=== PATIENT | male | born 1970 | race Hispanic/Latino ===

== ENCOUNTER → 2016-09-03 | Outpatient (CLI) | payer OTHER ==
[~2016-09-03] MED LIST: BENT10CA PO; NEUR300C PO; PANT40TA2 PO
[2016-09-07 00:07] LABS: HEMOGLOBIN A 58.3 % (94.0-98.0); HEMOGLOBIN S 38.2 % (0.0)
== END ==
LOC: M LAB 15:54
PROVIDERS: ATTEND Physician Assistant Medical
DX: G57.62 Lesion of plantar nerve, left lower limb (principal); D64.9 Anemia, unspecified

== ENCOUNTER → 2016-09-04 | Outpatient (CLI) | payer OTHER ==
--- NOTE | 2016-09-04 17:37 | ECGEPIP ---
Stationary ECG Study [facility] Test Date: 2016-09-04 Pat Name: RL BLOOD Department: Room: - Gender: M [employer]: ELIAN : 1970 Requested By: VAL Pedroza Order Number: [id number] Reading MD: Tahir Soto Measurements Intervals [place] Rate: 87 P: 42 OK: 127 QRS: -24 QRSD: 90 T: 14 QT: 328 QTc: 396 Interpretive Statements SINUS RHYTHM BORDERLINE LEFT AXIS DEVIATION MINIMAL VOLTAGE CRITERIA FOR LVH, CONSIDER NORMAL VARIANT Similar to tracing from 06-05-15 Electronically Signed On 09-04-2016 17:37:22 EST by Tahir Soto
== END ==
LOC: M EKG 16:35
PROVIDERS: ATTEND Podiatrist Foot & Ankle Surgery
DX: Z01.810 Encounter for preprocedural cardiovascular examination (principal)

== ENCOUNTER → 2016-09-10 | Outpatient (REF) | payer OTHER | LOC: M LAB REF 15:33 | PROVIDERS: ATTEND Podiatrist Foot & Ankle Surgery | DX: G57.62 Lesion of plantar nerve, left lower limb (principal) ==

== ENCOUNTER → 2016-10-07 | Outpatient (CLI) | payer OTHER ==
[2016-10-07 13:44] LABS: BASO % 0.3 % (0.0-1.0); EOS % 1.3 % (0.0-3.0); LYMPH # 0.9 K/mm3 (1.5-4.5); LYMPH % 20.8 % (24.0-44.0); MEAN CORPUSCULAR HEMOGLOBIN 27.7 pg (27.0-33.0); MEAN CORPUSCULAR HGB CONC 33.4 g/dl (32.0-36.5); MEAN CORPUSCULAR VOLUME 82.8 fl (80.0-96.0); MONO # 0.4 K/mm3 (0.0-0.8); NEUTROPHILS # 2.7 K/mm3 (1.8-7.7)
== END ==
LOC: M LAB 11:26
PROVIDERS: ATTEND Physician Assistant Medical
DX: D64.9 Anemia, unspecified (principal); E78.1 Pure hyperglyceridemia; E55.9 Vitamin D deficiency, unspecified

== ENCOUNTER 2016-11-25 18:51 | Emergency (ER) | payer OTHER ==
[~2016-11-25] VITALS: Ht 160 cm; Wt 88.5 kg
[2016-11-25] MEDS ORDERED: VITA50003 (19:11)
[2016-11-25] MEDS ORDERED: NS 1,000 ML IV ONE (21:45)
[2016-11-25] MEDS ORDERED: METOCLOPRAMIDE INJ 10MG/2ML VIAL (J2765) IV ONE (21:45)
[2016-11-25 22:30] LABS: BASO % 0.4 % (0.0-1.0); EOS # 0.1 K/mm3 (0.0-0.50); LARGE UNSTAINED CELL # 0.1 K/mm3 (0.0-0.4); LARGE UNSTAINED CELL % 1.8 % (0.0-4.0); LYMPH % 25.9 % (24.0-44.0); MEAN CORPUSCULAR HEMOGLOBIN 27.6 pg (27.0-33.0); MEAN CORPUSCULAR HGB CONC 33.4 g/dl (32.0-36.5); MEAN CORPUSCULAR VOLUME 82.5 fl (80.0-96.0); MONO # 0.5 K/mm3 (0.0-0.8); MONO % 6.5 % (0.0-5.0); NEUTROPHILS # 4.6 K/mm3 (1.8-7.7); NEUTROPHILS % 64.4 % (36.0-66.0); PLATELET COUNT, AUTOMATED 225 k/mm3 (150-450); RED CELL DISTRIBUTION WIDTH 13.2 % (11.5-14.5); WHITE BLOOD COUNT 7.2 K/mm3 (4.0-10.0)
[2016-11-25 22:50] LABS: ALBUMIN 4.3 GM/DL (3.2-5.2); ALBUMIN/GLOBULIN RATIO 1.08 (1.00-1.93); ALKALINE PHOSPHATASE 42 U/L (45-117); ALT/SGPT 41 U/L (12-78); AMYLASE 40 U/L (25-115); ANION GAP 6 MEQ/L (8-16); AST/SGOT 24 U/L (15-37); BILIRUBIN,DIRECT 0.2 MG/DL (0.0-0.2); BILIRUBIN,TOTAL 0.6 MG/DL (0.2-1.0); BLOOD UREA NITROGEN 10 MG/DL (7-18); CALCIUM LEVEL 9.7 MG/DL (8.5-10.1); CARBON DIOXIDE LEVEL 30 MEQ/L (21-32); CHLORIDE LEVEL 104 MEQ/L (98-107); CREATININE FOR GFR 0.97 MG/DL (0.70-1.30); GLOMERULAR FILTRATION RATE > 60.0 (>60); GLUCOSE, FASTING 110 MG/DL (70-105); POTASSIUM SERUM 3.6 MEQ/L (3.5-5.1); SODIUM LEVEL 140 MEQ/L (136-145); TOTAL PROTEIN 8.3 GM/DL (6.4-8.2)
[2016-11-25] MEDS ORDERED: REGL10TA6 PO (23:31)
[2016-11-25 23:38] VITALS: BP 112/67
--- NOTE | 2016-11-26 08:26 | REP ---
Acute abdominal series three views including PA chest and supine upright abdomen: PA chest: Comparison is 07/31/2015. The lung lackey are clear. The cardiac size is normal The clair, mediastinum, and bony thorax are unremarkable. Impression: Negative PA chest. There is no free subdiaphragmatic air. Abdomen, supine upright views: Comparison is 05/03/2013. The bowel gas pattern is normal. There are no unusual calcifications. The skeletal structures and soft tissues are otherwise unremarkable. There is no interval change. Impression: Normal bowel gas pattern. Signed by Manuel Sebastian MD 11/26/2016 08:17 A
== END 2016-11-25 23:44 | disposition home or self-care (01) ==
LOC: M ED 19:44
DX: K52.9 Noninfective gastroenteritis and colitis, unspecified (principal); K59.00 Constipation, unspecified
CPT/HCPCS: 36415; 74022; 80048; 80076; 81001; 82150; 83690; 85025; 96361; 96374; 99283; J2765

== ENCOUNTER 2017-01-01 23:17 | Emergency (ER) | payer OTHER ==
[~2017-01-01] VITALS: Ht 160 cm; Wt 88.5 kg
[~2017-01-01 23:17] MED LIST changes: +REGL10TA6 PO; +VITA50003
[2017-01-01] MEDS ORDERED: NS 1,000 ML IV ONE (23:45)
[2017-01-01] MEDS ORDERED: HYDROmorphone HCL 1 MG/ML SYRINGE (J1170) IV ONE (23:45)
[2017-01-01] MEDS ORDERED: KETOROLAC 30 MG/ML VIAL (J1885) IV ONE (23:45)
[2017-01-01 23:54] LABS: BASO % 0.4 % (0.0-1.0); EOS # 0.1 K/mm3 (0.0-0.50); EOS % 1.3 % (0.0-3.0); LARGE UNSTAINED CELL # 0.1 K/mm3 (0.0-0.4); LARGE UNSTAINED CELL % 1.3 % (0.0-4.0); LYMPH # 1.8 K/mm3 (1.5-4.5); LYMPH % 16.1 % (24.0-44.0); MEAN CORPUSCULAR HEMOGLOBIN 27.6 pg (27.0-33.0); MEAN CORPUSCULAR HGB CONC 33.7 g/dl (32.0-36.5); MONO # 0.5 K/mm3 (0.0-0.8); MONO % 4.3 % (0.0-5.0); NEUTROPHILS # 8.1 K/mm3 (1.8-7.7); NEUTROPHILS % 76.5 % (36.0-66.0); PLATELET COUNT, AUTOMATED 307 k/mm3 (150-450); RED CELL DISTRIBUTION WIDTH 12.7 % (11.5-14.5); WHITE BLOOD COUNT 10.5 K/mm3 (4.0-10.0)
[2017-01-02] MEDS ORDERED: HYDROmorphone HCL 1 MG/ML SYRINGE (J1170) IV ONE
[2017-01-02 00:25] LABS: ANION GAP 6 MEQ/L (8-16); BLOOD UREA NITROGEN 9 MG/DL (7-18); CALCIUM LEVEL 9.1 MG/DL (8.5-10.1); CARBON DIOXIDE LEVEL 28 MEQ/L (21-32); CHLORIDE LEVEL 103 MEQ/L (98-107); CREATININE FOR GFR 1.25 MG/DL (0.70-1.30); GLOMERULAR FILTRATION RATE > 60.0 (>60); GLUCOSE, FASTING 116 MG/DL (70-105); POTASSIUM SERUM 4.4 MEQ/L (3.5-5.1); SODIUM LEVEL 137 MEQ/L (136-145)
--- NOTE | 2017-01-02 01:10 | REPUSA ---
CLINICAL HISTORY: Abdominal pain. TECHNIQUE: Multiple axial, sagittal and coronal CT images were obtained through the abdomen and pelvi s without administration of oral or IV contrast material. COMMENTS: Comparison to the prior exam performed on 07/24/2014. Distended stomach. The liver is mildly enlarged without mass or defect. There is no intra or extrahepatic biliary ductal dilatation. The spleen is normal. The gallbladder is within normal limits. The pancreas is of normal contour and attenuation characteristics. There is no evidence of adrenal mass. 1.3 cm right renal cyst. The kidneys are normal in size, shape and configuration. No renal or ureteral calculi are identified. There is no hydroureter or hydronephrosis. There is no evidence for appendicitis. No evidence for small or large bowel obstruction. There is no evidence of abdominal ascites or lymphadenopathy. There is no evidence of intrinsic or extrinsic bladder mass. There is no pelvic ascites or lymphadeno scooter. Diffuse thickening of the ascending and transverse colon. Images of the lung bases show no evidence of pleural or parenchymal mass. There are no pleural effusi ons. The bony structures are free of lytic or blastic lesions. IMPRESSION: Thickening of the ascending and transverse colon. Underdistention, spasm versus mild colitis. Unchanged hepatomegaly with fatty liver infiltration. Mild gastroparesis. Thank you for your kind referral of this patient.
[2017-01-02 03:20] VITALS: BP 121/70
== END 2017-01-02 04:13 | disposition home or self-care (01) ==
LOC: M ED 23:38
DX: K58.9 Irritable bowel syndrome, unspecified (principal); K21.9 Gastro-esophageal reflux disease without esophagitis; G47.30 Sleep apnea, unspecified; Z79.899 Other long term (current) drug therapy
CPT/HCPCS: 74176; 80048; 81001; 85025; 87086; 96361; 96374; 96375; 96376; 99283; J1170; J1885

== ENCOUNTER → 2017-03-24 | Outpatient (RCR) | payer OTHER ==
[~2017-03-24] MED LIST changes: +ADVI200T PO; +ROBA500T PO; +SUMA50TA2 PO; +TIZANIDINE PO; +VITA1CAP40; -VITA50003
== END ==
LOC: M PT 14:04
PROVIDERS: ATTEND Podiatrist Foot & Ankle Surgery
DX: Z51.89 Encounter for other specified aftercare (principal); M72.2 Plantar fascial fibromatosis

== ENCOUNTER → 2017-04-15 | Outpatient (CLI) | payer OTHER ==
[2017-04-15 12:26] LABS: ALBUMIN 4.1 GM/DL (3.2-5.2); ALBUMIN/GLOBULIN RATIO 1.03 (1.00-1.93); ALKALINE PHOSPHATASE 49 U/L (45-117); ALT/SGPT 45 U/L (12-78); ANION GAP 6 MEQ/L (8-16); AST/SGOT 22 U/L (15-37); BILIRUBIN,TOTAL 0.9 MG/DL (0.2-1.0); BLOOD UREA NITROGEN 15 MG/DL (7-18); CALCIUM LEVEL 9.6 MG/DL (8.5-10.1); CARBON DIOXIDE LEVEL 30 MEQ/L (21-32); CHLORIDE LEVEL 104 MEQ/L (98-107); CHOLESTEROL LEVEL 202 MG/DL (<200); CREATININE FOR GFR 0.95 MG/DL (0.70-1.30); GLOMERULAR FILTRATION RATE > 60.0 (>60); GLUCOSE, FASTING 97 MG/DL (70-105); POTASSIUM SERUM 4.2 MEQ/L (3.5-5.1); SODIUM LEVEL 140 MEQ/L (136-145); TOTAL PROTEIN 8.1 GM/DL (6.4-8.2); TRIGLYCERIDES LEVEL 379 MG/DL (<150)
== END ==
LOC: M LAB 11:28
PROVIDERS: ATTEND Physician Assistant Medical
DX: E78.1 Pure hyperglyceridemia (principal)

== ENCOUNTER → 2017-04-24 | Outpatient (RCR) | payer OTHER | LOC: M PT 03-26 08:31 | PROVIDERS: ATTEND Podiatrist Foot & Ankle Surgery | DX: Z51.89 Encounter for other specified aftercare (principal); M72.2 Plantar fascial fibromatosis; M25.511 Pain in right shoulder; M25.512 Pain in left shoulder; M54.2 Cervicalgia ==

== ENCOUNTER 2017-05-21 14:53 | Outpatient (RCR) | payer OTHER ==
[~2017-05-21 14:53] MED LIST changes: -ADVI200T PO; -ROBA500T PO; -SUMA50TA2 PO; -TIZANIDINE PO
== END 2017-05-24 ==
LOC: M PT 14:53
PROVIDERS: ATTEND Podiatrist Foot & Ankle Surgery
DX: Z51.89 Encounter for other specified aftercare (principal); M54.2 Cervicalgia; M50.30 Other cervical disc degeneration, unspecified cervical region; M72.2 Plantar fascial fibromatosis

== ENCOUNTER 2017-05-29 12:38 | Emergency (ER) | payer OTHER ==
[~2017-05-29] VITALS: Ht 160 cm; Wt 89.1 kg
[2017-05-29] MEDS ORDERED: METOCLOPRAMIDE INJ 10MG/2ML VIAL (J2765) IV ONE (17:15)
[2017-05-29] MEDS ORDERED: KETOROLAC 30 MG/ML VIAL (J1885) IV ONE (17:15)
[2017-05-29] MEDS ORDERED: diphenhydrAMINE INJ 50MG/ML VIAL (J1200) IV ONE (17:15)
[2017-05-29] MEDS ORDERED: NS 500 ML IV ONE (17:15)
[2017-05-29 19:00] VITALS: BP 118/71
[2017-05-30] MEDS ORDERED: SUMA50TA2 PO (14:56)
== END 2017-05-29 20:28 | disposition home or self-care (01) ==
LOC: M ED 12:38
DX: G43.909 Migraine, unspecified, not intractable, without status migrainosus (principal); G47.33 Obstructive sleep apnea (adult) (pediatric); D57.3 Sickle-cell trait; Z82.49 Family history of ischemic heart disease and other diseases of the circulatory system; F12.90 Cannabis use, unspecified, uncomplicated; Z79.899 Other long term (current) drug therapy
CPT/HCPCS: 87880; 96374; 96375; 99283; J1200; J1885; J2765

== ENCOUNTER 2017-05-30 11:24 | Emergency (ER) | payer OTHER ==
[~2017-05-30] VITALS: Ht 160 cm; Wt 89.1 kg
[2017-05-30] MEDS ORDERED: diphenhydrAMINE INJ 50MG/ML VIAL (J1200) IV ONE (12:15)
[2017-05-30] MEDS ORDERED: KETOROLAC 30 MG/ML VIAL (J1885) IV ONE (12:15)
[2017-05-30] MEDS ORDERED: METOCLOPRAMIDE INJ 10MG/2ML VIAL (J2765) IV ONE (12:15)
[2017-05-30 12:21] LABS: BASO % 0.5 % (0.0-1.0); EOS # 0.1 10^3/uL (0.0-0.50); EOS % 0.8 % (0.0-3.0); IMMATURE GRANULOCYTE % 0.3 % (0-0); LYMPH # 1.6 10^3/uL (1.5-4.5); LYMPH % 20.7 % (24.0-44.0); MEAN CORPUSCULAR HEMOGLOBIN 28.3 pg (27.0-33.0); MEAN CORPUSCULAR HGB CONC 33.6 g/dl (32.0-36.5); MEAN CORPUSCULAR VOLUME 84.4 fl (80.0-96.0); MONO # 0.5 10^3/uL (0.0-0.8); NEUTROPHILS # 5.7 10^3/uL (1.8-7.7); NEUTROPHILS % 71.7 % (36.0-66.0); PLATELET COUNT, AUTOMATED 207 10^3/uL (150-450); RED CELL DISTRIBUTION WIDTH 12.4 % (11.5-14.5); WHITE BLOOD COUNT 7.9 10^3/uL (4.0-10.0)
[2017-05-30 12:25] LABS: ADD MANUAL DIFFER NO; DIFF SLIDE NUMBER 229
[2017-05-30 12:51] LABS: ALBUMIN 3.4 GM/DL (3.2-5.2); ALBUMIN/GLOBULIN RATIO 0.83 (1.00-1.93); ALKALINE PHOSPHATASE 42 U/L (45-117); ALT/SGPT 32 U/L (12-78); ANION GAP 2 MEQ/L (8-16); AST/SGOT 15 U/L (15-37); BILIRUBIN,DIRECT 0.1 MG/DL (0.0-0.2); BILIRUBIN,TOTAL 0.4 MG/DL (0.2-1.0); BLOOD UREA NITROGEN 13 MG/DL (7-18); CALCIUM LEVEL 8.8 MG/DL (8.5-10.1); CARBON DIOXIDE LEVEL 32 MEQ/L (21-32); CHLORIDE LEVEL 109 MEQ/L (98-107); CREATININE FOR GFR 1.02 MG/DL (0.70-1.30); GLOMERULAR FILTRATION RATE > 60.0 (>60); GLUCOSE, FASTING 110 MG/DL (70-105); SODIUM LEVEL 143 MEQ/L (136-145); TOTAL PROTEIN 7.5 GM/DL (6.4-8.2)
--- NOTE | 2017-05-30 13:17 | REP ---
CT Head without contrast HISTORY: Headache COMPARISON: 06/04/2015 There is no intraparenchymal hemorrhage, acute infarct, mass or midline shift. The ventricular system is normal in appearance. There is no extra cerebral collection. There is no fracture. The visualized sinuses are clear. IMPRESSION: There is no intracranial lesion. Signed by Bayron Perez MD 05/30/2017 01:08 P
[2017-05-30] MEDS ORDERED: NS 500 ML IV ONE (13:30)
[2017-05-30] MEDS ORDERED: MORPHINE 4 MG/ML 1ML SYRINGE IV ONE (13:30)
[2017-05-30] MEDS ORDERED: SUMA50TA2 PO (14:56)
[2017-05-30 15:00] VITALS: BP 130/82
== END 2017-05-30 15:01 | disposition home or self-care (01) ==
LOC: M ED 11:24
DX: G43.909 Migraine, unspecified, not intractable, without status migrainosus (principal); G89.29 Other chronic pain; G47.33 Obstructive sleep apnea (adult) (pediatric); D57.3 Sickle-cell trait; Z79.899 Other long term (current) drug therapy; Z82.49 Family history of ischemic heart disease and other diseases of the circulatory system
CPT/HCPCS: 70450; 80048; 80076; 83735; 85025; 96374; 96375; 99283; J1200; J1885; J2765

== ENCOUNTER → 2017-06-10 | Outpatient (CLI) | payer OTHER ==
[~2017-06-10] MED LIST changes: +ADVI200T PO; +ROBA500T PO; +SUMA50TA2 PO; +TIZANIDINE PO
[2017-06-10 15:10] LABS: ALBUMIN/GLOBULIN RATIO 1.14 (1.00-1.93); ALKALINE PHOSPHATASE 54 U/L (45-117); ALT/SGPT 46 U/L (12-78); ANION GAP 6 MEQ/L (8-16); AST/SGOT 23 U/L (15-37); BILIRUBIN,TOTAL 0.4 MG/DL (0.2-1.0); BLOOD UREA NITROGEN 9 MG/DL (7-18); CALCIUM LEVEL 9.3 MG/DL (8.5-10.1); CARBON DIOXIDE LEVEL 32 MEQ/L (21-32); CHLORIDE LEVEL 101 MEQ/L (98-107); CHOLESTEROL LEVEL 215 MG/DL (<200); CREATININE FOR GFR 0.87 MG/DL (0.70-1.30); GLOMERULAR FILTRATION RATE > 60.0 (>60); GLUCOSE, FASTING 81 MG/DL (70-105); POTASSIUM SERUM 4.2 MEQ/L (3.5-5.1); SODIUM LEVEL 139 MEQ/L (136-145); TOTAL PROTEIN 7.5 GM/DL (6.4-8.2); TRIGLYCERIDES LEVEL 440 MG/DL (<150)
== END ==
LOC: M LAB 12:26
PROVIDERS: ATTEND Physician Assistant Medical
DX: E78.2 Mixed hyperlipidemia (principal)

== ENCOUNTER 2017-06-14 12:46 | Emergency (ER) | payer OTHER ==
[~2017-06-14] VITALS: Ht 160 cm; Wt 91.4 kg
[~2017-06-14 12:46] MED LIST changes: -ADVI200T PO; -ROBA500T PO; -TIZANIDINE PO
[2017-06-14] MEDS ORDERED: TIZANIDINE PO (13:16)
[2017-06-14] MEDS ORDERED: ROBA500T PO (13:16)
[2017-06-14] MEDS ORDERED: ADVI200T PO (13:16)
[2017-06-14] MEDS ORDERED: diphenhydrAMINE INJ 50MG/ML VIAL (J1200) IV STA (16:18)
[2017-06-14] MEDS ORDERED: NS 1,000 ML IV ONE (16:30)
[2017-06-14] MEDS ORDERED: METOCLOPRAMIDE INJ 10MG/2ML VIAL (J2765) IV ONE (16:30)
[2017-06-14] MEDS ORDERED: KETOROLAC 30 MG/ML VIAL (J1885) IV ONE (16:30)
[2017-06-14 17:46] VITALS: BP 105/73
== END 2017-06-14 17:57 | disposition home or self-care (01) ==
LOC: M ED 12:46
DX: G43.909 Migraine, unspecified, not intractable, without status migrainosus (principal); Z79.899 Other long term (current) drug therapy
CPT/HCPCS: 96361; 96374; 96375; 99284; J1200; J1885; J2765

== ENCOUNTER → 2017-07-29 | Outpatient (CLI) | payer OTHER ==
[~2017-07-29] MED LIST changes: +ADVI200T PO; +ROBA500T PO; +TIZANIDINE PO
[2017-07-29 12:30] LABS: ALBUMIN 4.2 GM/DL (3.2-5.2); ALBUMIN/GLOBULIN RATIO 1.08 (1.00-1.93); ALKALINE PHOSPHATASE 46 U/L (45-117); ALT/SGPT 41 U/L (12-78); ANION GAP 8 MEQ/L (8-16); AST/SGOT 14 U/L (7-37); BILIRUBIN,TOTAL 0.4 MG/DL (0.2-1.0); BLOOD UREA NITROGEN 14 MG/DL (7-18); CALCIUM LEVEL 9.6 MG/DL (8.5-10.1); CARBON DIOXIDE LEVEL 28 MEQ/L (21-32); CHLORIDE LEVEL 106 MEQ/L (98-107); CHOLESTEROL LEVEL 246 MG/DL (<200); CREATININE FOR GFR 1.02 MG/DL (0.70-1.30); GLOMERULAR FILTRATION RATE > 60.0 (>60); GLUCOSE, FASTING 115 MG/DL (70-105); POTASSIUM SERUM 4.3 MEQ/L (3.5-5.1); SODIUM LEVEL 142 MEQ/L (136-145); TOTAL PROTEIN 8.1 GM/DL (6.4-8.2); TRIGLYCERIDES LEVEL 176 MG/DL (<150)
== END ==
LOC: M LAB 10:28
PROVIDERS: ATTEND Physician Assistant Medical
DX: E78.2 Mixed hyperlipidemia (principal)

== ENCOUNTER 2017-08-27 17:17 | Emergency (ER) | payer OTHER ==
[2017-08-27] MEDS: NORCO 5/325MG TABLET (BULK FOR ED) PO (21:36)
== END 2017-08-27 21:46 | disposition home or self-care (01) ==
LOC: M ED 17:17
DX: M54.42 Lumbago with sciatica, left side (principal); K21.9 Gastro-esophageal reflux disease without esophagitis
CPT/HCPCS: 72110

== ENCOUNTER 2017-10-29 16:42 | Emergency (ER) | payer BC, OTHER | END 2017-10-29 19:02 | disposition home or self-care (01) | LOC: M ED 16:42 | DX: S90.122A Contusion of left lesser toe(s) without damage to nail, initial encounter (principal); W22.8XXA Striking against or struck by other objects, initial encounter; Y92.018 Other place in single-family (private) house as the place of occurrence of the external cause; G47.33 Obstructive sleep apnea (adult) (pediatric); Z79.899 Other long term (current) drug therapy | CPT/HCPCS: 73630 ==

== ENCOUNTER 2018-05-22 16:35 | Emergency (ER) | payer OTHER ==
[2018-05-22] MEDS: METHOCARBAMOL 500 MG TAB PO (18:38)
[2018-05-22] MEDS: NORCO, ANEXSIA 5/325MG TABLET (HYDROcodone/ACETAMINOPHEN) PO (18:38)
== END 2018-05-22 18:50 | disposition home or self-care (01) ==
LOC: M ED 16:35
DX: S29.012A Strain of muscle and tendon of back wall of thorax, initial encounter (principal); X50.9XXA Other and unspecified overexertion or strenuous movements or postures, initial encounter; Y92.89 Other specified places as the place of occurrence of the external cause; M54.9 Dorsalgia, unspecified; G89.29 Other chronic pain; D57.1 Sickle-cell disease without crisis; K21.9 Gastro-esophageal reflux disease without esophagitis
CPT/HCPCS: 99283

== ENCOUNTER → 2018-08-05 | Outpatient (CLI) | payer BC | LOC: M WUC 13:15 | DX: M25.532 Pain in left wrist (principal) | CPT/HCPCS: 73110 ==

== ENCOUNTER → 2019-02-06 | Outpatient (CLI) | payer BC ==
[~2019-02-06] MED LIST changes: +GEMF600T5 PO; +HYDR-3715 PO; +IBUP80TA PO; -PANT40TA2 PO; +PANT40TA3 PO; -VITA1CAP40; +VITA50005
--- NOTE | 2019-02-06 14:24 | REP ---
LEFT SHOULDER, THREE VIEWS: There is no evidence of an acute fracture, dislocation or intrinsic bone disease. IMPRESSION: No fracture or dislocation. Electronically Signed by Manuel White MD 02/06/2019 07:39 P
--- NOTE | 2019-02-06 14:26 | REP ---
LEFT CLAVICLE, TWO VIEWS: Two views of the left clavicle are performed. There is no acute fracture, dislocation or intrinsic bone disease. IMPRESSION: No fracture or dislocation. Electronically Signed by Manuel White MD 02/06/2019 07:39 P
== END ==
LOC: M WUC 13:11
PROVIDERS: ATTEND Physician Assistant
DX: S40.012A Contusion of left shoulder, initial encounter (principal); W18.30XA Fall on same level, unspecified, initial encounter; Y92.009 Unspecified place in unspecified non-institutional (private) residence as the place of occurrence of the external cause

== ENCOUNTER → 2019-06-15 | Outpatient (CLI) | payer BC ==
[2019-06-15 20:17] LABS: PLATELET COUNT, AUTOMATED 204 10^3/uL (150-450)
[2019-06-15 20:42] LABS: INR 1.09; PROTHROMBIN TIME 13.8 SECONDS (11.8-14.0)
[2019-06-15 20:43] LABS: PARTIAL THROMBOPLASTIN TIME 29.7 SECONDS (25.0-38.4)
== END ==
LOC: M WUC 15:45
PROVIDERS: ATTEND Physician Assistant
DX: Z01.812 Encounter for preprocedural laboratory examination (principal); M47.22 Other spondylosis with radiculopathy, cervical region

== ENCOUNTER → 2019-11-10 | Outpatient (REF) | payer BC ==
[2019-11-10 13:26] LABS: BASO % 0.4 % (0.0-1.0); EOS # 0.1 10^3/uL (0.0-0.5); EOS % 1.2 % (0.0-3.0); HEMATOCRIT 45.8 % (42.0-52.0); HEMOGLOBIN 15.5 g/dl (13.5-17.5); LYMPH # 1.8 10^3/uL (1.5-5.0); LYMPH % 27.2 % (24.0-44.0); MEAN CORPUSCULAR HEMOGLOBIN 28.7 pg (27.0-33.0); MEAN CORPUSCULAR HGB CONC 33.8 g/dl (32.0-36.5); MEAN CORPUSCULAR VOLUME 84.7 fl (80.0-96.0); MONO # 0.6 10^3/uL (0.0-0.8); MONO % 8.5 % (0.0-5.0); NEUTROPHILS # 4.2 10^3/uL (1.5-8.5); NEUTROPHILS % 62.6 % (36.0-66.0); PLATELET COUNT, AUTOMATED 185 10^3/uL (150-450); RED BLOOD COUNT 5.41 10^6/uL (4.30-6.10); WHITE BLOOD COUNT 6.7 10^3/uL (4.0-10.0)
[2019-11-10 13:40] LABS: ALBUMIN 4.2 GM/DL (3.2-5.2); ALT/SGPT 41 U/L (12-78); BILIRUBIN,TOTAL 0.6 MG/DL (0.2-1.0); BLOOD UREA NITROGEN 15 MG/DL (7-18); CALCIUM LEVEL 9.4 MG/DL (8.5-10.1); CARBON DIOXIDE LEVEL 28 MEQ/L (21-32); CHLORIDE LEVEL 106 MEQ/L (98-107); CHOLESTEROL LEVEL 218 MG/DL (<200); CHOLESTEROL RISK RATIO 5.317 (<5); CREATININE FOR GFR 0.84 MG/DL (0.70-1.30); FREE T4 0.95 NG/DL (0.76-1.46); GLOMERULAR FILTRATION RATE > 60.0 (>60); GLUCOSE, FASTING 105 MG/DL (70-100); HDL CHOLESTEROL 41 MG/DL (>40); IRON (FE) 143 UG/DL (65-175); NON-HDL-C 177 MG/DL; SODIUM LEVEL 140 MEQ/L (136-145); TOTAL PROTEIN 7.6 GM/DL (6.4-8.2); TRIGLYCERIDES LEVEL 420 MG/DL (<150)
[2019-11-10 13:42] LABS: VITAMIN B12 LEVEL 838 PG/ML
[2019-11-10 13:43] LABS: FOLATE 16.2 NG/ML
[2019-11-10 13:44] LABS: HEMOGLOBIN A1c 5.7 %
== END ==
LOC: M LAB REF 12:25
PROVIDERS: ATTEND Nurse Practitioner Family
DX: R10.9 Unspecified abdominal pain (principal); M54.89 Other dorsalgia; M25.512 Pain in left shoulder; Z13.9 Encounter for screening, unspecified; E55.9 Vitamin D deficiency, unspecified

== ENCOUNTER → 2020-02-10 | Outpatient (REF) | payer BC ==
[2020-02-10 12:00] LABS: BASO % 0.3 % (0.0-1.0); EOS # 0.1 10^3/uL (0.0-0.5); EOS % 1.4 % (0.0-3.0); HEMATOCRIT 45.4 % (42.0-52.0); HEMOGLOBIN 15.4 g/dl (13.5-17.5); LYMPH # 1.6 10^3/uL (1.5-5.0); LYMPH % 24.7 % (24.0-44.0); MEAN CORPUSCULAR HEMOGLOBIN 28.5 pg (27.0-33.0); MEAN CORPUSCULAR HGB CONC 33.9 g/dl (32.0-36.5); MEAN CORPUSCULAR VOLUME 84.1 fl (80.0-96.0); MONO # 0.6 10^3/uL (0.0-0.8); MONO % 8.9 % (0.0-5.0); NEUTROPHILS # 4.1 10^3/uL (1.5-8.5); NEUTROPHILS % 64.4 % (36.0-66.0); PLATELET COUNT, AUTOMATED 172 10^3/uL (150-450); WHITE BLOOD COUNT 6.3 10^3/uL (4.0-10.0)
[2020-02-10 12:49] LABS: ALT/SGPT 37 U/L (12-78); BILIRUBIN,TOTAL 0.6 MG/DL (0.2-1.0); BLOOD UREA NITROGEN 13 MG/DL (7-18); CALCIUM LEVEL 9.2 MG/DL (8.5-10.1); CARBON DIOXIDE LEVEL 25 MEQ/L (21-32); CHLORIDE LEVEL 106 MEQ/L (98-107); CHOLESTEROL LEVEL 215 MG/DL (<200); CHOLESTEROL RISK RATIO 5.512 (<5); CREATININE FOR GFR 0.81 MG/DL (0.70-1.30); GLOMERULAR FILTRATION RATE > 60.0 (>60); GLUCOSE, FASTING 102 MG/DL (70-100); HDL CHOLESTEROL 39 MG/DL (>40); LDL CHOLESTEROL 107 MG/DL (<100); NON-HDL-C 176 MG/DL; SODIUM LEVEL 139 MEQ/L (136-145); TOTAL PROTEIN 7.4 GM/DL (6.4-8.2); TRIGLYCERIDES LEVEL 344 MG/DL (<150)
[2020-02-10 12:58] LABS: HEMOGLOBIN A1c 5.7 %
[2020-02-11 18:20] LABS: TOTAL 25(OH) VITAMIN D 36.4 NG/ML (30.0-100.0)
== END ==
LOC: M LAB REF 11:34
PROVIDERS: ATTEND Nurse Practitioner Family
DX: M54.2 Cervicalgia (principal); R73.03 Prediabetes; E78.5 Hyperlipidemia, unspecified; F41.8 Other specified anxiety disorders; R79.89 Other specified abnormal findings of blood chemistry; E55.9 Vitamin D deficiency, unspecified

== ENCOUNTER → 2020-02-21 | Outpatient (CLI) | payer BC | LOC: M LABSMTC 10:13 | PROVIDERS: ATTEND Orthopaedic Surgery | DX: Z11.59 Encounter for screening for other viral diseases (principal) ==

== ENCOUNTER → 2021-04-10 | Outpatient (CLI) | payer BC ==
[~2021-04-10] MED LIST changes: +PANT40TA29 PO; -PANT40TA3 PO
--- NOTE | 2021-04-10 21:44 | REP ---
INDICATION: CONCERN FOR DACTYLITIS, PSORIATIC ARTHRITIS COMPARISON: None. TECHNIQUE: AP, lateral, bilateral oblique views right hand. FINDINGS: The osseous structures and joint spaces are intact and age-appropriate. No significant overt arthritic changes are appreciated. There is no evidence for acute fracture or dislocation. Surrounding soft tissues are unremarkable. No subcutaneous emphysema or radiodense foreign body. IMPRESSION: No arthritic changes are appreciated. Age-appropriate examination. <Electronically signed by Charles Hirsch > 04/10/21 [id number]
[2021-04-12 08:09] LABS: LDL DIRECT 74 mg/dL (0-99)
== END ==
LOC: M WUC 11:30
PROVIDERS: ATTEND Internal Medicine
DX: M25.541 Pain in joints of right hand (principal); E78.1 Pure hyperglyceridemia

== ENCOUNTER → 2021-05-10 | Outpatient (CLI) | payer BC ==
--- NOTE | 2021-05-10 16:36 | REP ---
INDICATION: SWELLING, PAIN LT LEG COMPARISON: None. TECHNIQUE: White scale and color Doppler evaluation using linear high frequency transducer. FINDINGS: Ultrasound examination of the left lower extremity deep venous structures from the common femoral vein through the calf/ankle to include the peroneal, and tibial veins demonstrates normal compressibility flow and wave patterns in response to respiration and augmentation. There is no evidence for deep venous thrombosis. Contralateral CFV is patent and normal. IMPRESSION: No evidence for deep venous thrombosis. <Electronically signed by Charles Hirsch > 05/10/21 [id number]
== END ==
LOC: M RAD 15:44
PROVIDERS: ATTEND Internal Medicine
DX: M79.605 Pain in left leg (principal); M79.89 Other specified soft tissue disorders

== ENCOUNTER 2022-03-11 18:21 | Emergency (ER) | payer BC ==
[~2022-03-11] VITALS: Ht 160 cm; Wt 87.9 kg
[2022-03-11 18:22] VITALS: BP 121/68
[2022-03-11] MEDS ORDERED: BOOSTRIX/ADACEL VACCINE (DIPHTH/PERTUSS/ACELL/TETANUS) 0.5ML SYR IM ONE (22:50)
[2022-03-11] MEDS ORDERED: BACITRACIN OINTMENT 30GM TUBE TOP ONE (22:50)
[2022-03-11] MEDS ORDERED: CEPH500C PO (23:05)
== END 2022-03-11 23:35 | disposition home or self-care (01) ==
LOC: M ED 18:21
DX: S61.300A Unspecified open wound of right index finger with damage to nail, initial encounter (principal); Y92.099 Unspecified place in other non-institutional residence as the place of occurrence of the external cause; Y93.G1 Activity, food preparation and clean up

== ENCOUNTER → 2022-08-06 | Outpatient (CLI) | payer BC ==
[~2022-08-06] MED LIST changes: +CEPH500C PO
== END ==
LOC: M PLAIMG 11:29
PROVIDERS: ATTEND Nurse Practitioner Family
DX: M51.16 Intervertebral disc disorders with radiculopathy, lumbar region (principal); M51.17 Intervertebral disc disorders with radiculopathy, lumbosacral region

== ENCOUNTER → 2022-09-09 | Outpatient (CLI) | payer BC ==
[~2022-09-09] MED LIST changes: +CYCL-707 PO; +OMEP-173 PO; +PREG25CA2 PO
== END ==
LOC: M LABSMTC 10:50
PROVIDERS: ATTEND Anesthesiology
DX: Z01.812 Encounter for preprocedural laboratory examination (principal); Z11.52 Encounter for screening for COVID-19

== ENCOUNTER → 2022-09-13 | Day surgery (SDC) | payer BC ==
[~2022-09-13] VITALS: Ht 160 cm; Wt 86.7 kg
[~2022-09-13] MED LIST changes: +LIDOCAINE 2% 100MG/5ML SDV (FOR ANES.) As Ordered ONE; +NS 1,000 ML IV ONE; +propofoL 200 MG/20 ML VIAL As Ordered ONE
[2022-09-13 13:18] VITALS: BP 136/78
== END | disposition home or self-care (01) ==
LOC: M OPP 11:10
PROVIDERS: ATTEND Internal Medicine Gastroenterology
DX: Z12.11 Encounter for screening for malignant neoplasm of colon (principal); K63.89 Other specified diseases of intestine; K63.5 Polyp of colon; K64.8 Other hemorrhoids; K31.84 Gastroparesis; Z79.899 Other long term (current) drug therapy; G47.33 Obstructive sleep apnea (adult) (pediatric); Z99.89 Dependence on other enabling machines and devices; F32.9 Major depressive disorder, single episode, unspecified; F41.9 Anxiety disorder, unspecified

== ENCOUNTER → 2022-11-12 | Outpatient (CLI) | payer BC ==
[~2022-11-12] MED LIST changes: -LIDOCAINE 2% 100MG/5ML SDV (FOR ANES.) As Ordered ONE; -NS 1,000 ML IV ONE; -propofoL 200 MG/20 ML VIAL As Ordered ONE
[2022-11-12 17:51] LABS: URIC ACID 7.1 MG/DL (3.7-9.2)
[2022-11-12 17:54] LABS: C REACTIVE PROTEIN QUANTITATIV < 0.40 MG/DL (<1.0)
[2022-11-12 17:56] LABS: IMMUNOGLOBULIN A 195.2 MG/DL (40-350); RHEUMATOID FACTOR QUANT 35.3 IU/ML (<14)
[2022-11-14 04:07] LABS: LDL DIRECT 105 mg/dL (0-99)
== END ==
LOC: M RAD 16:01
PROVIDERS: ATTEND Internal Medicine
DX: M46.1 Sacroiliitis, not elsewhere classified (principal); M25.50 Pain in unspecified joint; K21.9 Gastro-esophageal reflux disease without esophagitis

== ENCOUNTER → 2023-11-04 | Outpatient (REF) | payer BC ==
[~2023-11-04] MED LIST changes: -PREG25CA2 PO; +PREG25CA3 PO
[2023-11-04 16:31] LABS: BASO % 0.4 % (0.0-1.0); EOS % 0.5 % (0.0-3.0); HEMATOCRIT 46.9 % (42.0-52.0); HEMOGLOBIN 15.3 g/dl (13.5-17.5); LYMPH # 1.6 10^3/uL (1.5-5.0); LYMPH % 20.9 % (24.0-44.0); MEAN CORPUSCULAR HEMOGLOBIN 27.8 pg (27.0-33.0); MEAN CORPUSCULAR HGB CONC 32.6 g/dl (32.0-36.5); MEAN CORPUSCULAR VOLUME 85.1 fl (80.0-96.0); MONO # 0.4 10^3/uL (0.0-0.8); MONO % 5.4 % (2.0-8.0); NEUTROPHILS # 5.6 10^3/uL (1.5-8.5); NEUTROPHILS % 72.7 % (36.0-66.0); PLATELET COUNT, AUTOMATED 204 10^3/uL (150-450); RED BLOOD COUNT 5.51 10^6/uL (4.30-6.10); WHITE BLOOD COUNT 7.7 10^3/uL (4.0-10.0)
[2023-11-04 16:32] LABS: APPEARANCE, URINE CLEAR (CLEAR); BACTERIA, URINE AUTO NEGATIVE (NEGATIVE); BILIRUBIN, URINE AUTO NEGATIVE (NEGATIVE); BLOOD, URINE BLOOD NEGATIVE (NEGATIVE); COLOR, URINE STRAW (YELLOW); GLUCOSE, URINE (UA) AUTO NEGATIVE (NEGATIVE); KETONE, URINE AUTO NEGATIVE (NEGATIVE); LEUKOCYTE ESTERASE, URINE AUTO NEGATIVE (NEGATIVE); NITRITE, URINE AUTO NEGATIVE (NEGATIVE); PROTEIN, URINE AUTO NEGATIVE (NEGATIVE); RBC, URINE AUTO 0 /HPF (0-3); SPECIFIC GRAVITY URINE AUTO 1.013 (1.002-1.035); SQUAMOUS EPITHELIAL CELL UR AU 0 /HPF (0-6); UROBILINOGEN, URINE AUTO 0.2 mg/dL (0.0-2.0); WBC, URINE AUTO 1 /HPF (0-3)
[2023-11-04 16:43] LABS: ERYTHROCYTE SEDIMENTATION RATE 21 mm/hr (0-20)
[2023-11-04 16:53] LABS: C REACTIVE PROTEIN QUANTITATIV < 0.40 MG/DL (<1.0)
[2023-11-04 16:55] LABS: ALBUMIN 4.1 G/DL (3.2-5.2); ALKALINE PHOSPHATASE 42 U/L (46-116); ALT/SGPT 22 U/L (7.0-40); AST/SGOT 18 U/L (<34); BILIRUBIN,TOTAL 0.5 MG/DL (0.3-1.2); BLOOD UREA NITROGEN 21 MG/DL (9-23); CALCIUM LEVEL 8.7 MG/DL (8.5-10.1); CARBON DIOXIDE LEVEL 26 MMOL/L (20-31); CHLORIDE LEVEL 105 MMOL/L (98-107); COMPLEMENT C3 155.9 MG/DL (90.0-170.0); COMPLEMENT C4 26.6 MG/DL (12-36); CREATININE FOR GFR 0.84 MG/DL (0.70-1.30); GLOMERULAR FILTRATION RATE > 60.0 (>56); GLUCOSE, FASTING 131 MG/DL (60-100); POTASSIUM SERUM 3.8 MMOL/L (3.5-5.1); SODIUM LEVEL 139 MMOL/L (136-145); TOTAL PROTEIN 7.3 G/DL (5.7-8.2)
[2023-11-04 18:10] LABS: CREATININE,RANDOM URINE 69.2 MG/DL
[2023-11-04 18:11] LABS: TOTAL PROTEIN,RANDOM URINE < 6.0 MG/DL (0.0-14.0)
== END ==
LOC: M SFHCRHEU 12:15
PROVIDERS: ATTEND Internal Medicine Rheumatology
DX: R76.8 Other specified abnormal immunological findings in serum (principal); M25.50 Pain in unspecified joint; R21 Rash and other nonspecific skin eruption; H04.123 Dry eye syndrome of bilateral lacrimal glands

== ENCOUNTER → 2023-12-18 | Outpatient (CLI) | payer BC | LOC: M RAD 13:28 | PROVIDERS: ATTEND Internal Medicine Rheumatology | DX: R76.8 Other specified abnormal immunological findings in serum (principal); M25.50 Pain in unspecified joint; R21 Rash and other nonspecific skin eruption; H04.123 Dry eye syndrome of bilateral lacrimal glands ==

== ENCOUNTER → 2024-05-28 | Outpatient (REF) | payer BC ==
[2024-05-30 04:12] LABS: LDL DIRECT 105 mg/dL (<100)
== END ==
LOC: M LAB REF 16:13
PROVIDERS: ATTEND Internal Medicine
DX: Z13.89 Encounter for screening for other disorder (principal); E78.00 Pure hypercholesterolemia, unspecified

== ENCOUNTER → 2024-09-22 | Outpatient (CLI) | payer BC | LOC: M PLAIMG 11:32 | PROVIDERS: ATTEND Pain Medicine Interventional Pain Medicine | DX: M54.12 Radiculopathy, cervical region (principal); M50.221 Other cervical disc displacement at C4-C5 level; M50.222 Other cervical disc displacement at C5-C6 level ==

== ENCOUNTER → 2024-11-26 | Outpatient (CLI) | payer BC | LOC: M RAD 08:49 | PROVIDERS: ATTEND Internal Medicine | DX: R10.13 Epigastric pain (principal); K76.0 Fatty (change of) liver, not elsewhere classified; N28.1 Cyst of kidney, acquired ==